=== PATIENT | female | born 1990 | race Caucasian/White ===

== ENCOUNTER 2017-04-05 19:52 | Emergency (ER) | payer BC ==
[2017-04-05 20:29] VITALS: BP 129/74
--- NOTE | 2017-04-05 21:20 | UC ---
Upper Extremity HPI - HPI Summary HPI Summary: Patient presents to the with CC of left distal forearm pain after falling near a bathtub and landing with the forearm onto the step in front of the tub. Immediate pain at 8/10. Small deformity noted, but no color changes or temperature changes. Denies numbness, tingling. Denies other symptoms. Denies hitting her head or other injuries. NV exam intact. - History of Current Complaint Chief Complaint: UCUpperExtremity Stated Complaint: WRIST Time Seen by Provider: 04/05/17 20:50 Hx Obtained From: Patient Hx Last Menstrual Period: 03/14/17 ?: No Onset/Duration: Sudden Onset Severity Initially: Mild Severity Currently: Mild Location Of Pain: Is Discrete @ - left distal wrist Alleviating Factor(s): Nothing Associated Signs And Symptoms: Positive: Negative - Allergies/Home Medications Allergies/Adverse Reactions: Allergies Allergy/AdvReac Type Severity Reaction Status Date / Time No Known Allergies Allergy Verified 04/05/17 20:24 Home Medications: Home Medications Tramadol ER(NF) [Ultram ER(NF)] 200 mg PO BEDTIME 04/05/17 [History Confirmed ] PMH/Surg Hx/FS Hx/Imm Hx Previously Healthy: Yes - Surgical History Surgical History: Yes Surgery Procedure, Year, and Place: gallbladder removed. ORAL SURGERY 2014 - Family History Known Family History: Positive: Unknown - Social History Occupation: Employed Full-time Lives: With Family Alcohol Use: None Substance Use Type: Prescribed Smoking Status (MU): Heavy Every Day Tobacco Smoker Type: Cigarettes Amount Used/How Often: 1/2 pack daily Review of Systems Constitutional: Negative Respiratory: Negative Cardiovascular: Negative Motor: Negative Neurovascular: Negative Neurological: Negative Psychological: Negative Is Patient Immunocompromised?: No All Other Systems Reviewed And Are Negative: Yes Physical Exam Triage Information Reviewed: Yes Appearance: Well-Appearing, No Pain Distress, Well-Nourished Vital Signs: Initial Vital Signs Temp 98.9 F 04/05/17 20:25 Pulse 85 04/05/17 20:25 Resp 14 04/05/17 20:25 BP 129/74 04/05/17 20:25 Pulse Ox 99 04/05/17 20:25 Neck exam: Normal Neck: Positive: Supple, No Lymphadenopathy Respiratory Exam: Normal Respiratory: Positive: Chest non-tender, Lungs clear Cardiovascular Exam: Normal Cardiovascular: Positive: RRR Musculoskeletal: Positive: ROM Limited @ - flexion and extension with limitations - rotation with limitations Neurological Exam: Normal Neurological: Positive: Alert Psychological: Positive: Normal Response To Family Upper Extremity Course/Dx - Course Course Of Treatment: xray of wrist negative. levi wrapped for comfort. Patient is OK with discharge. ice, elevate and ibuprofen. - Differential Dx/Diagnosis Differential Diagnosis/HQI/PQRI: Contusion, Strain, Sprain Provider Diagnoses: Contusion of the wrist Discharge - Discharge Plan Condition: Stable Disposition: HOME Patient Education Materials: Contusion in Adults (ED) Forms: *Work Release Referrals: Alyx Johns MD [Primary Care Provider] - Additional Instructions: Ibuprofen 600mg three times daily Levi wrap for comfort Ice Elevate Rest as much as possible
--- NOTE | 2017-04-05 21:40 | RAD ---
INDICATION: Ulnar-sided wrist pain after a fall COMPARISON: None. TECHNIQUE: 3 views left wrist. REPORT: The visualized bones are properly aligned and well corticated. The joint spaces are normal.There is no fracture, dislocation or other focal osseous abnormality. IMPRESSION: Normal radiograph of the left wrist. If the patient's symptoms persist, follow-up imaging is recommended.
== END 2017-04-05 21:47 | disposition home or self-care (01) ==
LOC: UCCORT 19:52
DX: S60.212A Contusion of left wrist, initial encounter (principal); W18.30XA Fall on same level, unspecified, initial encounter; Y92.89 Other specified places as the place of occurrence of the external cause; F17.210 Nicotine dependence, cigarettes, uncomplicated
CPT/HCPCS: 99211; G0463